=== PATIENT | female | born 1940 | race Caucasian/White ===

== ENCOUNTER 2017-08-15 10:13 | Outpatient (CLI) | payer MEDICARE, BC ==
--- NOTE | 2017-08-15 12:53 | MMO ---
BILATERAL MAMMOGRAMS: History: Screening mammography. Comparison: Multiple exams dating back 06-03-09. FINDINGS: Heterogeneously dense fibroglandular tissue and benign appearing calcifications are again demonstrate d. No dominant mass or suspicious calcifications. This study is interpreted with the assistance of co duyenuter aided detection. IMPRESSION: BIRADS category 1 - negative. Suggest routine follow up. POS: YUE
== END 2017-08-15 10:14 | disposition home or self-care (01) ==
LOC: SCSMAMMO 10:13
PROVIDERS: ATTEND Family Medicine
DX: Z12.31 Encounter for screening mammogram for malignant neoplasm of breast (principal)
CPT/HCPCS: 77067

== ENCOUNTER 2017-11-22 10:33 | Outpatient (CLI) | payer MEDICARE, BC ==
--- NOTE | 2017-11-22 11:37 | RAD ---
THREE VIEWS LEFT SHOULDER: History: Fall. Pain. Comparison: None. FINDINGS: Glenohumeral joint space is preserved. No fracture or dislocation. Visualized left ribs are unremarka ble. IMPRESSION: No fracture or dislocation. POS: YUE
== END 2017-11-22 10:34 | disposition home or self-care (01) ==
LOC: SCSRAD 10:33
PROVIDERS: ATTEND Nurse Practitioner Family
DX: M25.512 Pain in left shoulder (principal)

== ENCOUNTER 2017-11-29 10:01 | Outpatient (CLI) | payer MEDICARE, BC ==
--- NOTE | 2017-11-29 11:53 | ULT ---
THYROID ULTRASOUND: Indications: Enlarged thyroid. History of thyroidectomy over 15 years ago. FINDINGS: The right lobe of the thyroid is not identified indicating a prior right thyroid lobectomy. The left lobe of the thyroid is present and is relatively homogeneous. There are a few scattered tiny nodules present. A tiny nodule in the superior left lobe measures 0.4 - 0.8 cm. A tiny cystic nodule in the m id left lobe measures 0.1 - 0.3 cm. There are two tiny nodules in the inferior left lobe, each measur ing approximately 0.4 cm. One of these has an associated calcification present. IMPRESSION: 1. Evidence of prior right thyroid lobectomy. 2. Left lobe of the thyroid is upper normal size measuring 3.5 x 1.6 x 1.8 cm. There are tiny nodules in the left lobe as described above. POS: YUE
== END 2017-11-29 10:02 | disposition home or self-care (01) ==
LOC: SCSULT 10:01
PROVIDERS: ATTEND Nurse Practitioner Family
DX: E04.9 Nontoxic goiter, unspecified (principal); E04.2 Nontoxic multinodular goiter; E89.0 Postprocedural hypothyroidism
CPT/HCPCS: 76536

== ENCOUNTER 2018-10-23 11:39 | Outpatient (CLI) | payer MEDICARE, BC ==
--- NOTE | 2018-10-23 11:58 | RAD ---
XR Ankle Lt 3 View STANDARD History: M 25.572 pain in left ankle and joints of the left foot Comparison: None. Findings: Transversely oriented fracture of the medial malleolus, age indeterminant. Mild bimalleolar soft tissue swelling. Moderate dorsal and plantar calcaneal spurs. Impression: 1. Likely chronic nondisplaced transversely oriented fracture of the medial malleolus below the ankle joint. 2. Moderate dorsal and plantar calcaneal spurs.
== END 2018-10-23 11:40 | disposition home or self-care (01) ==
LOC: SCSRAD 11:39
PROVIDERS: ATTEND Nurse Practitioner Family
DX: M25.572 Pain in left ankle and joints of left foot (principal); M77.32 Calcaneal spur, left foot

== ENCOUNTER 2018-11-15 10:08 | Emergency (ER) | payer MEDICARE, BC ==
[2018-11-15] MEDS ORDERED: Acetaminophen 500 MG TAB ONE (10:36)
--- NOTE | 2018-11-15 10:47 | RAD ---
EXAM: 3 views of the right shoulder HISTORY: Shoulder pain after being hit by a cow COMPARISON: None FINDINGS: There is no evidence of acute fracture or dislocation. No degenerative changes are present. No soft tissue swelling is seen. The visualized thorax is unremarkable. IMPRESSION: No evidence of acute osseous abnormality.
== END 2018-11-15 11:24 | disposition home or self-care (01) ==
LOC: SCSER 10:08
DX: S40.011A Contusion of right shoulder, initial encounter (principal); W22.8XXA Striking against or struck by other objects, initial encounter
CPT/HCPCS: 93005

== ENCOUNTER 2018-12-22 13:38 | Inpatient (IN) | payer MEDICARE, BC ==
[2018-12-22 14:12] LABS: #Basophils 0.1 thou/uL (0.0-0.2); #Eosinphils 0.1 thou/uL (0.0-0.7); #Lymphocytes 2.1 thou/uL (1.20-3.40); #Monocytes 0.6 thou/uL (0.11-0.59); #Neutrophils 5.6 thou/uL (1.40-6.50); %Basophils 1.4 % (0.0-1.0); %Lymphocytes 24.4 % (21.0-51.0); %Monocytes 7.3 % (0.0-10.0); Hemoglobin 13.4 g/dL (12.0-16.0); Mean Corpuscular HGB CONC 35.5 g/dL (32.0-36.0); Mean Corpuscular Hemoglobin 32.1 pg (27.0-31.0); Mean Corpuscular Volume 90.6 fL (78.0-98.0); Mean Platelet Volume 7.2 fL (7.4-10.4); Platelet Count 232 thou/uL (130-400); RBC Distribution Width 12.1 % (11.5-14.5); Red Blood Cell (RBC) Count 4.18 mill/uL (4.20-5.40); White Blood Cell (WBC) Count 8.5 thou/uL (4.8-10.8)
[2018-12-22 14:23] LABS: ALT (SGPT) 15 U/L (8-55); AST (SGOT) 24 U/L (5-34); Albumin 3.9 g/dL (3.4-4.8); Alkaline Phosphatase 53 U/L (40-150); Anion Gap 15 mmol/L (10-20); BUN (Urea Nitrogen) 22 mg/dL (9.8-20.1); Bilirubin, Total 0.5 mg/dL (0.2-1.2); CK (CPK) 407 U/L (29-168); Calc. Creatinine Clearance 0 mL/min (70-130); Calcium 9.1 mg/dL (7.8-10.44); Carbon Dioxide 23 mmol/L (23-31); Chloride 95 mmol/L (98-107); Estimated GFR-MDRD 49; Globulin 2.9 g/dL (2.4-3.5); Glucose 114 mg/dL (83-110); Potassium 4.4 mmol/L (3.5-5.1); Protein, Total 6.8 g/dL (6.0-8.3); Sodium 129 mmol/L (136-145)
--- NOTE | 2018-12-22 14:23 | CT ---
EXAM: Brain CT scan Without contrast: HISTORY: Altered mental status COMPARISON: None FINDINGS: Atrophy and chronic white matter ischemic change. No focal mass or midline shift. No intra or extra-axial hemorrhage. Right sphenoid mucous and unremarkable mastoids bilaterally. IMPRESSION: No mass or bleed or other significant acute intracranial process.
--- NOTE | 2018-12-22 14:27 | RAD ---
Exam: Chest one view: HISTORY: Altered mental status, follow-up right shoulder injury COMPARISON: 11/15/2018 There is evidence for a fracture involving the right humeral head and extending in the neck, age inde terminant. Heart size is normal. The lungs are clear. No pleural effusion. IMPRESSION: Age-indeterminate right humeral head fracture. No acute intrathoracic disease. Atherosclerosis of the aorta.
[2018-12-22 14:41] LABS: CKMB 3.4 ng/mL (0-6.6)
[2018-12-22 14:52] LABS: Bilirubin Negative (Negative); Blood, Urine Negative (Negative); Clarity Clear (Clear); Glucose, Urine (Dipstick) Negative (Negative); Leukocyte Trace (Negative); Nitrite Negative (Negative); Protein, Urine (Dipstick) Negative (Neg-Trace); Urobilinogen 0.2 mg/dL (Less than 2)
[2018-12-22 14:59] LABS: Bacteria/HPF Rare-Few HPF (None Seen); RBC/HPF 0-3 HPF (0-3)
[2018-12-22] MEDS ORDERED: Aspirin Chewable 81 MG TAB ONE (15:29)
[2018-12-22 17:10] LABS: Troponin I 0.034 ng/mL (< 0.028)
[2018-12-22] MEDS ORDERED: Ondansetron PF 4 MG/2 ML Vial IVP PRN (18:40)
[2018-12-22] MEDS ORDERED: Acetaminophen 325 MG TAB PO PRN (18:40)
[2018-12-22] MEDS ORDERED: Ondansetron ODT 4 MG TAB SL PRN (18:40)
[2018-12-22] MEDS ORDERED: D5 1/2 NS w/20 mEq KCL 1,000 ML IV SCH (18:45)
[2018-12-22 19:38] VITALS: BMI 27.5
[2018-12-22] MEDS ORDERED: Calcium Carbonate 500 MG ChewTAB PO PRN (20:03)
[2018-12-22] MEDS ORDERED: HYDROcodone/Acetaminophen 5/325 mg Tablet PO PRN (20:03)
[2018-12-22] MEDS ORDERED: Docusate 100 MG CAP PO PRN (20:07)
[2018-12-22] MEDS ORDERED: diphenhydrAMINE 25 MG CAP PO PRN (20:07)
[2018-12-22 20:25] LABS: Troponin I 0.012 ng/mL (< 0.028)
[2018-12-22] MEDS: cefTRIAXone\\ROCEPHIN 2 GM in Sodium Chloride 0.9% 100 ML IVPB SCH (20:31)
[2018-12-22] MEDS: Famotidine 20 MG TAB PO SCH (20:31)
[2018-12-22 20:46] LABS: #Basophils 0.1 thou/uL (0.0-0.2); #Eosinphils 0.1 thou/uL (0.0-0.7); #Lymphocytes 1.6 thou/uL (1.20-3.40); #Monocytes 0.5 thou/uL (0.11-0.59); #Neutrophils 3.5 thou/uL (1.40-6.50); %Eosinophils 1.5 % (0.0-10.0); %Lymphocytes 28.1 % (21.0-51.0); %Neutrophils 60.4 % (42.0-75.0); Hemoglobin 12.2 g/dL (12.0-16.0); Mean Corpuscular HGB CONC 34.5 g/dL (32.0-36.0); Mean Corpuscular Hemoglobin 32.2 pg (27.0-31.0); Mean Corpuscular Volume 93.2 fL (78.0-98.0); Mean Platelet Volume 7.4 fL (7.4-10.4); Platelet Count 215 thou/uL (130-400); RBC Distribution Width 12.1 % (11.5-14.5); Red Blood Cell (RBC) Count 3.79 mill/uL (4.20-5.40); White Blood Cell (WBC) Count 5.9 thou/uL (4.8-10.8)
[2018-12-22 21:03] LABS: Anion Gap 11 mmol/L (10-20); BUN (Urea Nitrogen) 17 mg/dL (9.8-20.1); Calc. Creatinine Clearance 59 mL/min (70-130); Calcium 8.5 mg/dL (7.8-10.44); Carbon Dioxide 23 mmol/L (23-31); Chloride 97 mmol/L (98-107); Estimated GFR-MDRD 57; Glucose 122 mg/dL (83-110); Potassium 3.4 mmol/L (3.5-5.1); Sodium 128 mmol/L (136-145)
--- NOTE | 2018-12-23 02:24 | HP ---
CHIEF COMPLAINT: Altered mental status. HISTORY OF PRESENT ILLNESS: Ms. Durbin is a very pleasant 78-year-old white female with past medical history of depression, recurrent urinary tract infection, hypothyroidism, and osteoarthritis. Patient has been going through severe life stressors over the past several weeks and has had several close family deaths and she even found one neighbor who has passed. Patient has been under severe stress and depression from these episodes and has seen her primary care physician in the outpatient setting. Patient was started on Zoloft several weeks ago and has not been having a good response to it. Patient has been having worsening fatigue, low energy levels, low drive to get out of bed. Patient is not eating much. Patient's daughter at bedside does tell me that she does drink a lot of water everyday. She is constantly drinking water. Patient's symptoms have been progressively worsening, so they contacted the primary care physician, who recommended to stop the Zoloft medication and the patient was sent a new prescription for Lexapro, however, the patient has not filled this medication. The patient's daughter was concerned with worsening symptoms and brought her in to acute [facility] for further evaluation. I find the patient on the medical unit with telemetry. She is sitting upright and has finished her dinner and resting in no apparent distress. The patient is talking in full sentences. Patient knows her name, knows her date, knows she is at [facility] in [place], [place], she knows the year, and she has fair insight into her clinical condition. Patient's daughter at bedside tells me that normally she is very talkative and engaged in conversation, however, she has been more withdrawn lately and her daughter is worried about dementia. Patient was found to have mild urinary tract infection in addition to low sodium. Severe life stressors, likely worsening acute depression episode. Patient admitted to medical unit with telemetry for further evaluation and treatment. PAST MEDICAL HISTORY: 1. Depression. 2. Hypothyroidism. 3. Osteoarthritis. 4. Recurrent urinary tract infection, who follows up with Urology in the clinic. 5. Osteoarthritis. HOME MEDICATIONS: 1. Levothyroxine 50 mcg one tab p.o. daily. 2. Zoloft 50 mg one tab p.o. daily. SOCIAL HISTORY: The patient is a nonsmoker, nondrinker with no illicit drug use. REVIEW OF SYSTEMS: A 10-point review of systems was conducted and negative aside from what is mentioned in the history of present illness. ALLERGIES: SULFA. PAST SURGICAL HISTORY: Denies. PHYSICAL EXAMINATION: VITAL SIGNS: Temperature 97.4, pulse 67, respirations 18, O2 saturation 94% on room air, and blood pressure 141/82. HEENT: Head is normocephalic and atraumatic. Pupils are equally round and reactive to light and accommodation. Extraocular muscles are intact. There are no appreciated exudates or erythema on the tonsils. NECK: Supple and symmetrical. LUNGS: Lungs are clear to auscultation bilaterally without wheezing, rales, or rhonchi. CARDIAC: S1 and S2 present. No appreciated murmurs, rubs, or gallops. ABDOMEN: Abdomen is soft, nontender, and nondistended without focal guarding or rigidity. EXTREMITIES: There is 1+ edema bilaterally in the lower extremities. Upper and lower extremities are symmetrical without gross deformity. The right arm is in a sling with recent broken humerus from a fall. There is mild tenderness to palpation on the right humerus. Patient does have good range of motion for this arm. SKIN: No significant rashes or lesions appreciated. PSYCHIATRIC: Patient is alert and oriented x3 with fair insight to her clinical condition. LABORATORY DATA: WBC 8.5, RBC 4.18, hemoglobin 13.4, hematocrit 37.8, and platelets 232. Sodium 129, potassium 4.4, chloride 95, carbon dioxide 23, anion gap 15, BUN 22, creatinine 1.07, estimated GFR 49, glucose 114, lactic acid 1.5, calcium 9.1, total bilirubin 0.5, AST 24, ALT 15, and alkaline phosphatase 53. Creatine kinase 407. Troponin 0.034. Albumin 3.9. Urinalysis was performed and was abnormal for trace leukocyte esterase with few bacteria. ASSESSMENT/PLAN: 1. Altered mental status. Patient's altered mental status is multifactorial including hyponatremia, worsening depression, and urinary tract infection. Although the patient's daughter is concerned for dementia, there are several other organic medical diseases that would explain her symptoms and the acute onset of her symptoms also point to dementia. We will correct the patient's sodium and see if patient's mental status improves. Stop patient's current antidepressant as this may be too potent for her and has been causing worsening lethargy. Concerning patient's urinary tract infection, we will start IV antibiotics and deescalate to culture and sensitivity as able. 2. Hyponatremia. Patient has had episodes of hyponatremia in the past and has had episodes of confusion with this. IV fluid resuscitation has been discontinued and the patient appears to be euvolemic. We will recommend that the patient have fluid restrictions. With the patient being on SSRI medications, the possibility of SIADH is also considered. If hyponatremia cannot be controlled, I will consult Nephrology for further recommendations. 3. Acute urinary tract infection. Patient has frequent recurrent urinary tract infections and follows up with Urology frequently. We will start broad-spectrum antibiotics and deescalate to culture and sensitivity as able. 4. Fall several weeks ago, resulting in right humeral fracture. Patient has outpatient followup with Orthopedic Surgery. 5. Depression. Patient has had many severe life stressors including close family deaths and finding someone close to her who has passed. Patient may benefit from a mild antidepressant such as mirtazapine that is recommended by geriatricians, a low dose at night may aid in sleep as well. With patient having numerous adverse side effects from her Zoloft and being changed to Lexapro and washout period of a few days is recommended. 6. Hypothyroidism. 7. Osteoarthritis. 8. Elevated BMI. Job ID: [id number]
[2018-12-23] MEDS: hydrALAZINE 20 MG/ML VIAL SLOW IVP PRN (03:47)
[2018-12-23] MEDS ORDERED: Levothyroxine Sodium 50 MCG TAB PO SCH (06:00)
[2018-12-23] MEDS ORDERED: cloNIDine 0.1 MG TAB PO SCH (06:15)
[2018-12-23] MEDS ORDERED: Prevnar 13-Val Conj/PF 0.5 ML SYRINGE IM ONE (09:00)
[2018-12-23] MEDS: Enoxaparin Sodium 40 MG/0.4 ML SYRINGE SC SCH (09:20)
[2018-12-23] MEDS: Lisinopril 10 MG TAB PO SCH (09:20)
[2018-12-23] MEDS: Famotidine 20 MG TAB PO SCH ×2 (09:20→20:30)
[2018-12-23] MEDS: Sodium Chloride 0.9% 1,000 ML IV SCH (09:21)
[2018-12-23] MEDS: Amlodipine 5 MG TAB PO SCH (09:21)
--- NOTE | 2018-12-23 12:03 | PDOC.HOSPP ---
- Subjective Subjective: Seen and examined. Slept well. Alert and oriented x3 with fair insight into clinical condition. Educated on cutting back on her free water intake. Denies pain. Breathing well. No new complaints. - Objective Vital Signs & Weight: Vital Signs (12 hours) Temp Pulse Resp BP BP Pulse Ox 12/23/18 08:25 98.0 F 71 18 151/66 H 98 12/23/18 06:34 184/70 H 12/23/18 05:44 184/70 H 12/23/18 04:00 98.3 F 78 17 159/78 H 97 12/23/18 03:47 67 215/96 H Weight Weight 175 lb 9.6 oz I&O: 12/22/18 12/23/18 12/24/18 06:59 06:59 06:59 Intake Total 940 Output Total 1000 Balance -60 Result Diagrams: 12/22/18 20:39 12/22/18 20:39 Radiology Reviewed by me: Yes (Chest x-ray) Hospitalist ROS - Medication Medications: Active Medications Generic Name Dose Route Start Last Admin Trade Name Freq PRN Reason Stop Dose Admin Amlodipine Besylate 5 mg 12/23/18 09:00 12/23/18 09:21 Norvasc PO 5 mg DAILY BUBBA Administration Enoxaparin Sodium 40 mg 12/23/18 09:00 12/23/18 09:20 Lovenox SC 40 mg 0900 BUBBA Administration Famotidine 20 mg 12/22/18 21:00 12/23/18 09:20 Pepcid PO 20 mg BID BUBBA Administration Hydralazine HCl 10 mg 12/22/18 20:07 12/23/18 03:47 Apresoline SLOW IVP 10 mg Q4H PRN Administration Hypertension Ceftriaxone Sodium 2 gm/ 100 mls @ 200 mls/hr 12/22/18 21:00 12/22/18 20:31 Sodium Chloride IVPB 12/29/18 21:01 100 mls Q24HR BUBBA Administration Sodium Chloride 1,000 mls @ 50 mls/hr 12/23/18 07:45 12/23/18 09:21 Normal Saline 0.9% IV 1,000 mls .Q20H BUBBA Administration Levothyroxine Sodium 50 mcg 12/23/18 06:00 12/23/18 05:44 Synthroid PO 50 mcg 0600 BUBBA Administration Lisinopril 10 mg 12/23/18 09:00 12/23/18 09:20 Zestril PO 10 mg DAILY BUBBA Administration - Exam General Appearance: NAD, awake alert Eye: PERRL, anicteric sclera Eye - other findings: EOMI ENT: no oropharyngeal lesions, moist mucosa Neck: supple, symmetric Heart: no murmur, no gallops, no rubs Heart - other findings: S1 and S2 present Respiratory: CTAB, no wheezes, no rales, no ronchi Gastrointestinal: soft, non-tender, non-distended, no guarding, no rigidity Extremities: no edema Skin: no lesions, no rashes Neurological: CN's grossly intact, normal sensation to touch, no weakness Musculoskeletal: no muscle wasting, generalized weakness Psychiatric: normal affect, A&O x 3 Hosp A/P (1) Hyponatremia Code(s): E87.1 - HYPO-OSMOLALITY AND HYPONATREMIA Status: Acute (2) Altered mental status Code(s): R41.82 - ALTERED MENTAL STATUS, UNSPECIFIED Status: Resolved (3) UTI (urinary tract infection) Status: Acute (4) Hypothyroid Code(s): E03.9 - HYPOTHYROIDISM, UNSPECIFIED Status: Chronic (5) Depression Code(s): F32.9 - MAJOR DEPRESSIVE DISORDER, SINGLE EPISODE, UNSPECIFIED Status : Acute - Plan Plan: Med/ tel Hyponatremia worse, patient was transferred on D5 1/2NS which will lower sodium Restrict free water intake NS at 50mL/hr for slow correction of sodium AMS has resolved CT brain neg Hold SSRI with concern for SIADH Has had increasing lethargy since started on SSRI a few weeks ago Severe life stressors worsening acute depression Start Amlodipine for better BP control Continue Lisionopril Continue home meds as able GI and DVT PPX
[2018-12-23] MEDS: cefTRIAXone\\ROCEPHIN 2 GM in Sodium Chloride 0.9% 100 ML IVPB SCH (20:30)
[2018-12-24] MEDS: hydrALAZINE 20 MG/ML VIAL SLOW IVP PRN (04:56)
[2018-12-24] MEDS: Levothyroxine Sodium 100 MCG TAB PO SCH (04:56)
[2018-12-24] MEDS: Sodium Chloride 0.9% 1,000 ML IV SCH (05:46)
[2018-12-24 07:14] LABS: #Eosinphils 0.2 thou/uL (0.0-0.7); #Lymphocytes 1.3 thou/uL (1.20-3.40); #Monocytes 0.4 thou/uL (0.11-0.59); #Neutrophils 3.8 thou/uL (1.40-6.50); %Basophils 0.6 % (0.0-1.0); %Eosinophils 3.2 % (0.0-10.0); %Lymphocytes 23.3 % (21.0-51.0); %Monocytes 7.2 % (0.0-10.0); %Neutrophils 65.8 % (42.0-75.0); Hemoglobin 12.6 g/dL (12.0-16.0); Mean Corpuscular HGB CONC 34.2 g/dL (32.0-36.0); Mean Corpuscular Volume 93.4 fL (78.0-98.0); Mean Platelet Volume 7.6 fL (7.4-10.4); Platelet Count 205 thou/uL (130-400); RBC Distribution Width 12.2 % (11.5-14.5); Red Blood Cell (RBC) Count 3.95 mill/uL (4.20-5.40); White Blood Cell (WBC) Count 5.7 thou/uL (4.8-10.8)
[2018-12-24 07:38] LABS: Anion Gap 10 mmol/L (10-20); BUN (Urea Nitrogen) 14 mg/dL (9.8-20.1); Calc. Creatinine Clearance 62 mL/min (70-130); Calcium 8.5 mg/dL (7.8-10.44); Carbon Dioxide 24 mmol/L (23-31); Chloride 99 mmol/L (98-107); Estimated GFR-MDRD 59; Glucose 102 mg/dL (83-110); Potassium 3.8 mmol/L (3.5-5.1); Sodium 129 mmol/L (136-145)
[2018-12-24] MEDS: Amlodipine 5 MG TAB PO SCH (08:05)
[2018-12-24] MEDS: Lisinopril 10 MG TAB PO SCH (08:05)
[2018-12-24] MEDS: Famotidine 20 MG TAB PO SCH ×2 (08:05→20:30)
[2018-12-24] MEDS: Enoxaparin Sodium 40 MG/0.4 ML SYRINGE SC SCH (08:06)
--- NOTE | 2018-12-24 11:39 | PDOC.HOSPP ---
- Subjective Subjective: Seen and examined. Denies pain. Breathing well. Wants to go home. A&Ox3 with fair insight into clinical condition. Continues to drink a lot of water. Not much improvement in sodium. - Objective Vital Signs & Weight: Vital Signs (12 hours) Temp Pulse Pulse Pulse Resp BP BP 12/24/18 11:17 99 F 80 18 12/24/18 09:48 12/24/18 08:55 89 95 140/64 12/24/18 07:09 98.9 F 82 18 12/24/18 04:56 77 188/71 H 12/24/18 04:30 97.9 F 77 16 BP BP Pulse Ox 12/24/18 11:17 148/66 H 95 12/24/18 09:48 138/70 12/24/18 08:55 151/67 H 12/24/18 07:09 177/76 H 99 12/24/18 04:56 12/24/18 04:30 188/77 H 97 Weight Weight 178 lb 4.8 oz I&O: 12/23/18 12/24/18 12/25/18 06:59 06:59 06:59 Intake Total 940 2370 Output Total 1000 1075 Balance -60 1295 Result Diagrams: 12/24/18 06:58 12/24/18 06:58 Hospitalist ROS - Medication Medications: Active Medications Generic Name Dose Route Start Last Admin Trade Name Freq PRN Reason Stop Dose Admin Amlodipine Besylate 5 mg 12/23/18 09:00 12/24/18 08:05 Norvasc PO 5 mg DAILY BUBBA Administration Enoxaparin Sodium 40 mg 12/23/18 09:00 12/24/18 08:06 Lovenox SC 40 mg 09 BUBBA Administration Famotidine 20 mg 12/22/18 21:00 12/24/18 08:05 Pepcid PO 20 mg BID BUBBA Administration Hydralazine HCl 10 mg 12/22/18 20:07 12/24/18 04:56 Apresoline SLOW IVP 10 mg Q4H PRN Administration Hypertension Ceftriaxone Sodium 2 gm/ 100 mls @ 200 mls/hr 12/22/18 21:00 12/23/18 20:30 Sodium Chloride IVPB 12/29/18 21:01 100 mls Q24HR BUBBA Administration Levothyroxine Sodium 100 mcg 12/24/18 06:00 09/02/19 04:56 Synthroid PO 100 mcg 0600 BUBBA Administration Lisinopril 10 mg 12/23/18 09:00 12/24/18 08:05 Zestril PO 10 mg DAILY BUBBA Administration - Exam General Appearance: NAD, awake alert Eye: PERRL, anicteric sclera Eye - other findings: EOMI ENT: no oropharyngeal lesions, moist mucosa Neck: supple Heart: RRR, no murmur, no gallops, no rubs Respiratory: CTAB, no wheezes, no rales, no ronchi Gastrointestinal: soft, non-tender, non-distended, no guarding, no rigidity Extremities: no clubbing, 1+ LE edema Skin: no lesions, no rashes Neurological: CN's grossly intact, no weakness, no focal deficits, no new deficit Musculoskeletal: generalized weakness Psychiatric: normal affect, A&O x 3 Hosp A/P (1) Hyponatremia Code(s): E87.1 - HYPO-OSMOLALITY AND HYPONATREMIA Status: Acute (2) Altered mental status Code(s): R41.82 - ALTERED MENTAL STATUS, UNSPECIFIED Status: Resolved (3) UTI (urinary tract infection) Status: Acute (4) Hypothyroid Code(s): E03.9 - HYPOTHYROIDISM, UNSPECIFIED Status: Chronic (5) Depression Code(s): F32.9 - MAJOR DEPRESSIVE DISORDER, SINGLE EPISODE, UNSPECIFIED Status : Acute - Plan Plan: Med/ tel Hyponatremia not much improvement, patient continues to drink a lot of water Restrict free water intake Stop NS at 50mL/hr for slow correction of sodium, to avoid volume overload AMS has resolved CT brain neg Hold SSRI with concern for SIADH Has had increasing lethargy since started on SSRI a few weeks ago Severe life stressors worsening acute depression Better BP control after starting Amlodipine, may need uptitrated over the following days/ weeks Continue Amlodipine 5mg daily Continue Lisionopril 10mg daily UTI on ABX, will adjust to culture and sensitivity when able Preliminary blood culture positive 1/2 may be contaminant Continue home meds as able GI and DVT PPX
[2018-12-24] MEDS: cefTRIAXone\\ROCEPHIN 2 GM in Sodium Chloride 0.9% 100 ML IVPB SCH (20:30)
[2018-12-25 04:47] LABS: Creatinine, Urine 24.17 mg/dL (47-110)
[2018-12-25 05:11] LABS: #Eosinphils 0.2 thou/uL (0.0-0.7); #Lymphocytes 1.4 thou/uL (1.20-3.40); #Monocytes 0.5 thou/uL (0.11-0.59); #Neutrophils 3.1 thou/uL (1.40-6.50); %Basophils 0.5 % (0.0-1.0); %Eosinophils 3.7 % (0.0-10.0); %Lymphocytes 26.2 % (21.0-51.0); %Monocytes 9.4 % (0.0-10.0); %Neutrophils 60.2 % (42.0-75.0); Hemoglobin 12.1 g/dL (12.0-16.0); Mean Corpuscular HGB CONC 34.7 g/dL (32.0-36.0); Mean Corpuscular Hemoglobin 32.1 pg (27.0-31.0); Mean Corpuscular Volume 92.8 fL (78.0-98.0); Mean Platelet Volume 7.7 fL (7.4-10.4); Platelet Count 193 thou/uL (130-400); RBC Distribution Width 12.1 % (11.5-14.5); Red Blood Cell (RBC) Count 3.77 mill/uL (4.20-5.40); White Blood Cell (WBC) Count 5.2 thou/uL (4.8-10.8)
[2018-12-25 05:25] LABS: Anion Gap 11 mmol/L (10-20); BUN (Urea Nitrogen) 13 mg/dL (9.8-20.1); Calc. Creatinine Clearance 67 mL/min (70-130); Calcium 8.7 mg/dL (7.8-10.44); Carbon Dioxide 24 mmol/L (23-31); Chloride 99 mmol/L (98-107); Estimated GFR-MDRD 63; Glucose 105 mg/dL (83-110); Potassium 3.9 mmol/L (3.5-5.1); Sodium 130 mmol/L (136-145)
[2018-12-25] MEDS: Levothyroxine Sodium 100 MCG TAB PO SCH (05:46)
[2018-12-25] MEDS: hydrALAZINE 20 MG/ML VIAL SLOW IVP PRN (05:50)
[2018-12-25] MEDS: Lisinopril 10 MG TAB PO SCH (08:22)
[2018-12-25] MEDS: Famotidine 20 MG TAB PO SCH ×2 (08:22→20:14)
[2018-12-25] MEDS: Enoxaparin Sodium 40 MG/0.4 ML SYRINGE SC SCH (08:22)
[2018-12-25] MEDS: Amlodipine 5 MG TAB PO SCH (08:23)
--- NOTE | 2018-12-25 09:59 | CON ---
DATE OF CONSULTATION: SERVICE: Renal Medicine. HISTORY OF PRESENT ILLNESS: Ms. Durbin is an 78-year-old white female, who was initially admitted for confusion. The patient's mentation over the last few days has improved on its own. The feeling is that the confusion may be related to a drug-induced etiology. During this hospitalization, she was noted to be hyponatremic. I have placed this patient on free water restriction and in the last 12 hours, serum sodium slightly improved. We are further following up this patient for evaluation of the etiology of the hypothyroidism. Of interest, this patient has had increased free water intake and this may be contributing to her hyponatremia. REVIEW OF SYSTEMS: No chest pain. Occasional confusion. No nausea. No vomiting. No diarrhea. No constipation. No productive cough. No fever or chills. No syncopal episode. No dysuria. No urinary frequency. No melena. No hematochezia. No hematemesis. Appetite and energy level are fair. No headache. MEDICATIONS: Currently on; 1. Amlodipine 5 mg tablet once a day. 2. Calcium carbonate 1000 mg q.4 p.r.n. 3. Ceftriaxone 2 g daily. 4. Benadryl 25 mg q.6 p.r.n. 5. Docusate 100 mg p.o. b.i.d. 6. Lovenox 40 mg subcu daily. 7. Famotidine 20 mg p.o. b.i.d. 8. Hydrocodone p.r.n. 9. DuoNeb q.4. 10. Levothyroxine 100 mcg daily. 11. Lisinopril 10 mg daily. PAST MEDICAL HISTORY: Shows the following; 1. Hypothyroidism. 2. DJD. 3. Depression. 4. Status post UTI. PAST SURGICAL HISTORY: Status post bilateral knee replacement, status post back surgery, status post hysterectomy, and status post thyroidectomy. SOCIAL HISTORY: The patient is . Lives in [place]. Two children. She is a retired e commerce director. Education, high school. No smoking. Takes one beer per day. No IV drug abuse. Denies any blood transfusion. ALLERGIES: SULFA. TRAUMA: None. IMMUNIZATIONS: Not up-to-date - declining flu shot. FAMILY HISTORY: No family history of ESRD. PHYSICAL EXAMINATION: VITAL SIGNS: Blood pressure is noted at 185/75, heart rate 71, respiratory rate 16, temperature 98.5, and pulse ox 96%. GENERAL: Noted to be awake, alert, comfortable, not in distress. Oriented to 3 spheres. SKIN: Adequate turgor. HEENT: Pinkish conjunctivae. Anicteric sclerae. NECK: No neck mass. No carotid bruits. No JVD. CHEST: No deformities. LUNGS: Clear breath sounds. HEART: Normal sinus rhythm. No murmur. No gallops. No rubs. ABDOMEN: Globular, soft, and nontender. No masses. EXTREMITIES: No edema. No deformities. NEUROLOGICAL: Oriented to 3 spheres. Moving all extremities. No tremors. No asterixis. No ataxia. LABORATORY DATA: Laboratories of December 25, 2018; sodium 130, potassium 3.9, chloride 99, carbon dioxide 24, BUN 13, creatinine 0.86, glucose 105, and calcium is 8.7. Cortisol level on December 24, 2018 of 8.2. TSH 1.834. Uric acid is 3.5. Urine sodium is 97. Urine creatinine 24.17. Urine osmolality is 299. Serum osmolality is 275. IMAGING DATA: On December 22, 2018, chest x-ray shows no evidence of CHF. CT scan of the brain on December 22, 2018, no acute intracranial process. ASSESSMENT AND PLAN: Acute hyponatremia - this may be just a reflection of increased free water intake by the patient. She has a history of taking several liters of free water in a short period. I have placed her on a free water restriction and there is a slight improvement of the hyponatremia. For the moment, continue free water restriction of 1 L per day. There is no indication for starting this patient on any hypertonic saline. In addition, I reviewed her medication. She is not currently taking any medication, which might cause the hyponatremia. For the moment, supportive care. Her mentation is doing well. We will recheck base metabolic panel again in a.m. Overall, agree with current management. Job ID: [id number]
[2018-12-25] MEDS ORDERED: Amlodipine 5 MG TAB PO SCH (11:15)
--- NOTE | 2018-12-25 12:34 | PDOC.HOSPP ---
- Subjective Subjective: Seen and examined. Patient slept well. In good spirits. Patient with fluid restrictions in place has 3 open drinks in front of her. BP still not controlled. Mentation improved. Patient wants to go home. - Objective Vital Signs & Weight: Vital Signs (12 hours) Temp Pulse Resp BP BP Pulse Ox 12/25/18 11:15 97.7 F 82 18 127/58 L 99 12/25/18 07:40 97.8 F 88 16 199/81 H 96 12/25/18 05:50 71 198/92 H 12/25/18 04:00 98.5 F 71 16 185/75 H 96 Weight Weight 177 lb 4.8 oz I&O: 12/24/18 12/25/18 12/26/18 06:59 06:59 06:59 Intake Total 2370 1810 Output Total 1075 2200 Balance 1295 -390 Result Diagrams: 12/25/18 04:49 12/25/18 04:49 Hospitalist ROS - Review of Systems All other systems reviewed; all pertinent +/- noted in HPI/Subj - Medication Medications: Active Medications Generic Name Dose Route Start Last Admin Trade Name Freq PRN Reason Stop Dose Admin Amlodipine Besylate 5 mg 12/25/18 11:15 12/25/18 12:00 Norvasc PO 12/25/18 13:15 5 mg NOW BUBBA Administration Enoxaparin Sodium 40 mg 12/23/18 09:00 12/25/18 08:22 Lovenox SC 40 mg 0900 BUBBA Administration Famotidine 20 mg 12/22/18 21:00 12/25/18 08:22 Pepcid PO 20 mg BID BUBBA Administration Hydralazine HCl 10 mg 12/22/18 20:07 12/25/18 05:50 Apresoline SLOW IVP 10 mg Q4H PRN Administration Hypertension Ceftriaxone Sodium 2 gm/ 100 mls @ 200 mls/hr 12/22/18 21:00 12/24/18 20:30 Sodium Chloride IVPB 12/29/18 21:01 100 mls Q24HR BUBBA Administration Levothyroxine Sodium 100 mcg 12/24/18 06:00 12/25/18 05:46 Synthroid PO 100 mcg 0600 BUBBA Administration Lisinopril 10 mg 12/23/18 09:00 12/25/18 08:22 Zestril PO 10 mg DAILY BUBBA Administration - Exam General Appearance: NAD, awake alert Eye: PERRL Eye - other findings: EOMI ENT: no oropharyngeal lesions, moist mucosa Neck: supple, symmetric, no JVD Heart: RRR, no murmur, no gallops, no rubs Respiratory: CTAB, no wheezes, no rales, normal chest expansion Gastrointestinal: soft, non-tender, normal bowel sounds, no guarding, no rigidity Extremities: 1+ LE edema Skin: no lesions, no rashes Neurological: CN's grossly intact, no focal deficits Musculoskeletal: generalized weakness Psychiatric: normal affect, A&O x 3 Hosp A/P (1) Hyponatremia Code(s): E87.1 - HYPO-OSMOLALITY AND HYPONATREMIA Status: Acute (2) Altered mental status Code(s): R41.82 - ALTERED MENTAL STATUS, UNSPECIFIED Status: Resolved (3) UTI (urinary tract infection) Status: Acute (4) Hypothyroid Code(s): E03.9 - HYPOTHYROIDISM, UNSPECIFIED Status: Chronic (5) Depression Code(s): F32.9 - MAJOR DEPRESSIVE DISORDER, SINGLE EPISODE, UNSPECIFIED Status : Acute - Plan Plan: Med/ tel Nephrology consult, recommendations appreciated Hyponatremia not much improvement, patient continues to drink a lot of water/ fluids Further restrict free water intake 1000cc total all fluids per day Stop NS at 50mL/hr for slow correction of sodium, to avoid volume overload AMS has resolved CT brain neg Hold SSRI with concern for SIADH Has had increasing lethargy since started on SSRI a few weeks ago Severe life stressors worsening acute depression Better BP control after starting Amlodipine, may need uptitrated over the following days/ weeks Increased Amlodipine 10mg daily Continue Lisionopril 10mg daily UTI on ABX, will adjust to culture and sensitivity when able Preliminary blood culture positive 1/2 may be contaminant Continue home meds as able GI and DVT PPX
--- NOTE | 2018-12-25 12:52 | PQF ---
DATE: 12-25-18 ATTN: DR. XAVIER CORBIN Please exercise your independent, professional judgment in responding to the clarification form. Clinical indicators are provided on the bottom of this form for your review Please check appropriate box(s): Mood Disorder Type (check appropriate): [ XX ] Major Depressive Disorder Status: Severity: [ ] Single past episode [ ] Mild [ ] Current episode [ ] Moderate [ ] In remission [ ] Severe [ ] Persistent Mood Disorder [ ] Other diagnosis [ ] Unable to determine In addition, please specify: Present on Admission (POA): [ ] Yes [ ] No [ ] Unable to determine For continuity of documentation, please document condition throughout progress notes and discharge summary. Thank You. CLINICAL INDICATORS - SIGNS / SYMPTOMS / LABS: H&P 12-22-18: PATIENT HAS BEEN UNDER SEVERE STRESS AND DEPRESSION FROM THESE EPISODES. RISK FACTORS: H&P 12-22-18: HX DEPRESSION, HAS BEEN GOING THROUGH SEVERE LIKE STRESSORS OVER THE PAST SEVERAL WEEKS AND HAS HAD SEVERAL CLOSE FAMILY DEATHS AND SHE EVEN FOUND ONE NEIGHBOR WHO HAS PASSED. TREATMENT: H&P: PT MAY BENEFIT FROM A MILD ANTIDEPRESSANT SUCH MIRTAZAPINE LORENA IS RECOMMENDED BY GERIATRICIANS (This form is maintained as a part of the permanent medical record) 2014 [employer] All Rights Reserved [email or web address] Office: [phone] LIEN
--- NOTE | 2018-12-25 16:34 | PDOC.EVN ---
Event Note - Event Note Event Note: Discussed case with daughter Angélica at . All questions answered in detail. Patient and family happy with plan of care. Will peruse placement for a short course in sub acute facility when medically stable.
[2018-12-25] MEDS: cefTRIAXone\\ROCEPHIN 2 GM in Sodium Chloride 0.9% 100 ML IVPB SCH (20:14)
[2018-12-25] MEDS ORDERED: Lisinopril 10 MG TAB PO SCH (21:00)
[2018-12-26] MEDS: Levothyroxine Sodium 100 MCG TAB PO SCH (04:50)
[2018-12-26 05:33] LABS: #Eosinphils 0.2 thou/uL (0.0-0.7); #Lymphocytes 1.7 thou/uL (1.20-3.40); #Monocytes 0.6 thou/uL (0.11-0.59); #Neutrophils 4.1 thou/uL (1.40-6.50); %Basophils 0.5 % (0.0-1.0); %Eosinophils 2.7 % (0.0-10.0); %Lymphocytes 25.6 % (21.0-51.0); %Monocytes 9.2 % (0.0-10.0); %Neutrophils 61.9 % (42.0-75.0); Hemoglobin 11.6 g/dL (12.0-16.0); Mean Corpuscular HGB CONC 35.4 g/dL (32.0-36.0); Mean Corpuscular Hemoglobin 33.1 pg (27.0-31.0); Mean Corpuscular Volume 93.5 fL (78.0-98.0); Mean Platelet Volume 7.9 fL (7.4-10.4); Platelet Count 204 thou/uL (130-400); RBC Distribution Width 12.1 % (11.5-14.5); Red Blood Cell (RBC) Count 3.51 mill/uL (4.20-5.40); White Blood Cell (WBC) Count 6.6 thou/uL (4.8-10.8)
[2018-12-26 05:43] LABS: Anion Gap 11 mmol/L (10-20); BUN (Urea Nitrogen) 18 mg/dL (9.8-20.1); Calc. Creatinine Clearance 61 mL/min (70-130); Calcium 8.3 mg/dL (7.8-10.44); Carbon Dioxide 22 mmol/L (23-31); Chloride 99 mmol/L (98-107); Estimated GFR-MDRD 58; Glucose 103 mg/dL (83-110); Potassium 3.8 mmol/L (3.5-5.1); Sodium 128 mmol/L (136-145)
[2018-12-26] MEDS: Famotidine 20 MG TAB PO SCH ×2 (08:49→21:36)
[2018-12-26] MEDS: Lisinopril 10 MG TAB PO SCH ×2 (08:49→21:35)
[2018-12-26] MEDS: Amlodipine 10 MG TAB PO SCH (08:49)
[2018-12-26] MEDS: Enoxaparin Sodium 40 MG/0.4 ML SYRINGE SC SCH (08:49)
[2018-12-26] MEDS: Sodium Chloride 1 GM TAB PO SCH ×3 (09:02→21:36)
--- NOTE | 2018-12-26 09:59 | PRG ---
DATE OF SERVICE: 12/26/2018 SUBJECTIVE: Ms. Durbin is an 78-year-old white female, who I have seen for her hyponatremia. Workup may suggest she may have SIADH. She is currently on free water restriction. Serum sodium is a little low today from 130 to 128. Our plan is to start her on some sodium chloride tablets. She is mentating well. She denies any chest pain, nausea, vomiting, or diarrhea. OBJECTIVE: VITAL SIGNS: Blood pressure is 151/68, heart rate 76, respiratory rate 16, temperature 98.5, and pulse oximetry 96%. GENERAL: Noted to be awake, alert, comfortable, not in distress. SKIN: Adequate turgor. HEENT: She has pinkish conjunctivae. Anicteric sclerae. NECK: No neck mass. No carotid bruits. No JVD. CHEST: No deformities. LUNGS: Clear breath sounds. No wheezing. No crackles. HEART: Normal sinus rhythm. No murmur. No gallops. No rubs. ABDOMEN: Globular, soft, and nontender. No masses. EXTREMITIES: No edema. No deformities. MEDICATIONS: Medications of December 26, 2018, were reviewed. LABORATORY DATA: Laboratories of December 26, 2018; sodium 128, potassium 3.8, chloride 99, carbon dioxide 22, BUN 18, creatinine 0.93, glucose 103, and calcium 8.3. 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 Continue free water restriction of 1 L per day. We will start sodium chloride 1 g p.o. t.i.d. There is no indication for any hypertonic saline. The patient is mentating well. Continue supportive care. Overall, agree with current management. Recheck basic metabolic profile in a.m. Job ID: [id number]
--- NOTE | 2018-12-26 12:37 | PDOC.HOSPP ---
- Subjective Subjective: Seen and examined. Patient confused on the year this AM. Knows she is in [facility], at [facility], knows herself. Though she does not have a good understanding of clinical condition despite being educated daily. Does not remember to restrict water intake and sodium has worsened from 130 to 128. - Objective Vital Signs & Weight: Vital Signs (12 hours) Temp Pulse Resp BP Pulse Ox 12/26/18 12:25 97.9 F 79 15 135/63 96 12/26/18 08:00 96 12/26/18 07:40 98.5 F 76 16 151/68 H 96 12/26/18 04:00 98.8 F 84 16 139/63 93 L Weight Weight 177 lb 14.4 oz I&O: 12/25/18 12/26/18 12/27/18 06:59 06:59 06:59 Intake Total 1810 1310 Output Total 2200 1575 Balance -390 -265 Result Diagrams: 12/26/18 04:34 12/26/18 04:34 Hospitalist ROS - Review of Systems All other systems reviewed; all pertinent +/- noted in HPI/Subj - Medication Medications: Active Medications Generic Name Dose Route Start Last Admin Trade Name Freq PRN Reason Stop Dose Admin Amlodipine Besylate 10 mg 12/26/18 09:00 12/26/18 08:49 Norvasc PO 10 mg DAILY BUBBA Administration Enoxaparin Sodium 40 mg 12/23/18 09:00 12/26/18 08:49 Lovenox SC 40 mg 0900 BUBBA Administration Famotidine 20 mg 12/22/18 21:00 12/26/18 08:49 Pepcid PO 20 mg BID BUBBA Administration Hydralazine HCl 10 mg 12/22/18 20:07 12/25/18 05:50 Apresoline SLOW IVP 10 mg Q4H PRN Administration Hypertension Ceftriaxone Sodium 2 gm/ 100 mls @ 200 mls/hr 12/22/18 21:00 12/25/18 20:14 Sodium Chloride IVPB 12/29/18 21:01 100 mls Q24HR BUBBA Administration Levothyroxine Sodium 100 mcg 12/24/18 06:00 12/26/18 04:50 Synthroid PO 100 mcg 0600 BUBBA Administration Lisinopril 10 mg 12/26/18 09:00 12/26/18 08:49 Zestril PO 10 mg BID BUBBA Administration Sodium Chloride 10 ml 12/26/18 09:00 12/26/18 08:51 Flush - Normal Saline IVF 10 ml Q12HR BUBBA Administration Sodium Chloride 1 gm 12/26/18 09:00 12/26/18 09:02 Sodium Chloride PO 1 gm TID BUBBA Administration - Exam General Appearance: NAD, awake alert Eye: anicteric sclera Eye - other findings: EOMI ENT: no oropharyngeal lesions, moist mucosa Neck: supple, symmetric, no lymphadenopathy Heart: RRR, no murmur, no gallops, no rubs, normal peripheral pulses Respiratory: CTAB, no wheezes, no rales, no ronchi, normal chest expansion Gastrointestinal: soft, non-tender, non-distended, normal bowel sounds, no guarding, no rigidity Extremities: no cyanosis, 1+ LE edema Skin: normal turgor, no rashes Neurological: CN's grossly intact, no weakness, no focal deficits Musculoskeletal: generalized weakness Psychiatric: normal affect, oriented to person, oriented to place Hosp A/P (1) Hyponatremia Code(s): E87.1 - HYPO-OSMOLALITY AND HYPONATREMIA Status: Acute (2) Altered mental status Code(s): R41.82 - ALTERED MENTAL STATUS, UNSPECIFIED Status: Resolved (3) UTI (urinary tract infection) Status: Acute (4) Hypothyroid Code(s): E03.9 - HYPOTHYROIDISM, UNSPECIFIED Status: Chronic (5) Depression Code(s): F32.9 - MAJOR DEPRESSIVE DISORDER, SINGLE EPISODE, UNSPECIFIED Status : Acute - Plan Plan: Med/ tel Nephrology consult, recommendations appreciated Hyponatremia not much improvement actually worse today decreasing from 130 to 128, patient continues to drink a lot of water/ fluids Strict fluid restrict free water intake 1000cc total all fluids per day Agree with salt tabs Confusion is worse today Better BP control after starting Amlodipine, may need uptitrated over the following days/ weeks Continue Amlodipine 10mg daily Increase to Lisionopril 10mg BID from once daily CT brain neg Hold SSRI with concern for SIADH Has had increasing lethargy since started on SSRI a few weeks ago Severe life stressors worsening acute depression UTI on ABX, will adjust to culture and sensitivity when able Preliminary blood culture positive 1/2 may be contaminant Continue home meds as able GI and DVT PPX
[2018-12-26] MEDS ORDERED: Mirtazapine 15 MG Soltab PO SCH (21:00)
[2018-12-26] MEDS: cefTRIAXone\\ROCEPHIN 2 GM in Sodium Chloride 0.9% 100 ML IVPB SCH (21:35)
[2018-12-27] MEDS: Levothyroxine Sodium 100 MCG TAB PO SCH (05:33)
[2018-12-27 06:25] LABS: #Eosinphils 0.2 thou/uL (0.0-0.7); #Lymphocytes 1.3 thou/uL (1.20-3.40); #Monocytes 0.6 thou/uL (0.11-0.59); %Basophils 0.8 % (0.0-1.0); %Eosinophils 4.4 % (0.0-10.0); %Lymphocytes 25.6 % (21.0-51.0); %Monocytes 11.2 % (0.0-10.0); Mean Corpuscular HGB CONC 33.3 g/dL (32.0-36.0); Mean Corpuscular Hemoglobin 31.7 pg (27.0-31.0); Mean Platelet Volume 7.7 fL (7.4-10.4); Platelet Count 207 thou/uL (130-400); RBC Distribution Width 12.3 % (11.5-14.5); Red Blood Cell (RBC) Count 3.47 mill/uL (4.20-5.40); White Blood Cell (WBC) Count 5.1 thou/uL (4.8-10.8)
[2018-12-27 06:34] LABS: Anion Gap 12 mmol/L (10-20); BUN (Urea Nitrogen) 16 mg/dL (9.8-20.1); Calc. Creatinine Clearance 67 mL/min (70-130); Calcium 8.5 mg/dL (7.8-10.44); Carbon Dioxide 22 mmol/L (23-31); Chloride 101 mmol/L (98-107); Estimated GFR-MDRD 64; Glucose 100 mg/dL (83-110); Potassium 4.1 mmol/L (3.5-5.1); Sodium 131 mmol/L (136-145)
[2018-12-27] MEDS: Amlodipine 10 MG TAB PO SCH (07:43)
[2018-12-27] MEDS: Lisinopril 10 MG TAB PO SCH (07:44)
[2018-12-27] MEDS: Famotidine 20 MG TAB PO SCH (07:44)
[2018-12-27] MEDS: Enoxaparin Sodium 40 MG/0.4 ML SYRINGE SC SCH (07:44)
[2018-12-27] MEDS: Sodium Chloride 1 GM TAB PO SCH ×2 (08:22→14:43)
[2018-12-27] MEDS ORDERED: cloNIDine 0.1 MG TAB PO SCH (09:00)
--- NOTE | 2018-12-27 10:15 | PRG ---
DATE OF SERVICE: 12/27/2018 SUBJECTIVE: Ms. Durbin is an 78-year-old white female, who was seen by the Renal Service for her hyponatremia. This patient may have history of SIADH. She was started on sodium chloride tablet as well as free water restriction. This morning, she voices no new complaints. She denies any chest pain or shortness of breath. OBJECTIVE: VITAL SIGNS: Blood pressure is 192/77, heart rate 79, respiratory rate 16, temperature 98.5, and pulse ox 97%. GENERAL: Noted to be awake, alert, and comfortable, not in overt distress. SKIN: Adequate turgor. HEENT: She has a pinkish conjunctivae. Anicteric sclerae. NECK: No neck mass. No carotid bruits. No JVD. CHEST: No deformities. LUNGS: Clear breath sounds. HEART: Normal sinus rhythm. No murmur. No gallops. No rubs. ABDOMEN: Globular, soft, and nontender. No masses. EXTREMITIES: No edema. No deformities. MEDICATIONS: Medications of December 27, 2018, reviewed. LABORATORY DATA: Laboratories of December 27, 2018; white count 5.1, hemoglobin 11, hematocrit 33. Sodium 131, potassium 4.1, chloride 101, carbon dioxide 22, BUN 16, creatinine 0.85, glucose 100, and calcium 8.5. ASSESSMENT AND PLAN: 1. Hyponatremia - secondary to presumed syndrome of inappropriate antidiuretic hormone secretion. Continue free water restriction. Continue sodium chloride tablet. No indication for any hypertonic saline. 2. Hypertension, consider adding clonidine 0.1 mg tablet b.i.d. Overall prognosis remains fair. Agree with current management. Recheck basic metabolic in a.m. if the patient is still here. Job ID: [id number]
[2018-12-27 11:49] VITALS: BP 112/58; TEMP 98.2
--- NOTE | 2018-12-28 05:59 | DIS ---
DATE OF ADMISSION: 12/22/2018 DATE OF DISCHARGE: 12/27/2018 REASON FOR HOSPITALIZATION: Altered mental status. SIGNIFICANT FINDINGS: The patient found to have hyponatremia and acute urinary tract infection causing altered mental status. The patient's mentation did improve as sodium was slowly corrected. The patient also with malignant hypertension on admission. PROCEDURE PERFORMED AND TREATMENTS RENDERED: The patient was admitted to medical unit with telemetry for close observation and treatment. The patient was seen by Nephrology, please see full consultation and progress notes for details. Daily adjustments of medications were performed to correct the patient's sodium and eventually she was placed on sodium chloride tablets 1 g p.o. t.i.d. by Nephrology. The patient's blood pressure regimen was adjusted daily with good resolution of malignant hypertension. The patient recommended safe for discharge by Nephrology to rehabilitation facility. CONDITION ON DISCHARGE: Stable. SPECIFIC INSTRUCTIONS FOR THE PATIENT/FAMILY: 1. The patient is recommended to complete a full course of inpatient rehabilitation as directed by admitting physician. 2. The patient is recommended to take all medications as directed, to be re-evaluated by admitting physician. 3. The patient is recommended to have serial lab draws to monitor sodium over time and ensure correction of sodium. 4. The patient is recommended to adhere to fluid restrictions. 5. The patient is recommended to follow up with all specialists as directed. 6. The patient is recommended to follow up with primary care physician in 5 to 7 days after discharge to rehabilitation facility. 7. The patient is recommended to return to acute care hospital immediately if signs or symptoms return, worsen, or any other new symptoms occur. DISCHARGE MEDICATIONS: Please see full list for details. The patient's medications were changed as follows: 1. Lisinopril 10 mg one tablet p.o. b.i.d. 2. Amlodipine 10 mg one tablet p.o. daily. 3. Cefpodoxime 200 mg one tablet p.o. q.12 hours for an additional three days, six tabs. 4. The patient was stopped on SSRI medication and recommended to start low-dose mirtazapine in the next 5 to 7 days for depression. 5. All other home medications continued without changes. HOSPITAL COURSE: Ms. Durbin is a very pleasant 78-year-old white female with past medical history of hypertension, hyponatremia, hypothyroidism, depression, and osteoarthritis, who presents to [facility] on 12/22/2018 with altered mental status. The patient was found to have hyponatremia, this has caused altered mental status for her in the past. Nephrology consultation requested, please see full consultation and progress notes for details. The patient with daily adjustments in medications to control sodium levels including fluid restrictions, IV hypertonic saline, and finally salt tablets. With all of these efforts, the patient's sodium did eventually improve to the level of 131 on the day of discharge on 12/27/2018. As the patient's sodium wax and wane, her mental status also waxed and waned. The patient was found to have urinary tract infection and was placed on IV antibiotics, urine culture with mixed ellyn that did not grow any specific organisms and sensitivities could not be definitively identified. The patient with normal WBC count throughout her hospitalization. The patient afebrile throughout her hospitalization. The patient recommended to complete a full course of oral cefpodoxime for resolution of urinary tract infection. The patient with malignant hypertension and blood pressure medications were adjusted to help control her blood pressure. The patient recommended safe for discharge by Nephrology on 12/27/2018 with close followup in the rehabilitation facility. The patient recommended to have serial sodium levels over the following days to ensure that sodium continues to improve. The patient recommended in the next 5 to 7 days to restart antidepressant medications such as mirtazapine at a low dose as recommended by rattling machine tender. The patient does have uncontrolled depression and has low drive secondary to severe stressors. The patient has even been so severe per her daughter as that she does not want to get out of bed, does not care to take her medicines, does not care to get well. The patient will benefit from outpatient talk therapy with psychologist in addition to medication therapy to control her depression in the future. The patient is recommended to take all medications as directed, to be re-evaluated by admitting physician at rehabilitation facility. The patient is recommended to follow up with primary care physician, Nephrology, and psychiatrist in the outpatient setting in the next 1 to 2 weeks. The patient is recommended to return to acute care hospital immediately if signs or symptoms return, worsen, or any other new symptoms occur. Greater than 35 minutes spent coordinating care and discharge process for this patient. Job ID: [id number]
== END 2018-12-27 16:07 | DRG 644 ==
LOC: SCSER 13:38 → 2NO 15:25
PROVIDERS: ADMIT Internal Medicine; ATTEND Internal Medicine
DX: E22.2 Syndrome of inappropriate secretion of antidiuretic hormone (principal); S42.301A Unspecified fracture of shaft of humerus, right arm, initial encounter for closed fracture; N39.0 Urinary tract infection, site not specified; F32.9 Major depressive disorder, single episode, unspecified; E03.9 Hypothyroidism, unspecified; M19.90 Unspecified osteoarthritis, unspecified site; I10 Essential (primary) hypertension; W19.XXXA Unspecified fall, initial encounter; Z96.653 Presence of artificial knee joint, bilateral; Z90.710 Acquired absence of both cervix and uterus; Z88.2 Allergy status to sulfonamides; Y92.9 Unspecified place or not applicable
CPT/HCPCS: 36415; 51701; 70450; 71045; 80048; 80053; 81003; 81015; 82533; 82550; 82553; 82570; 83605; 83930; 83935; 84300; 84443; 84484; 84550; 85025; 87040; 87077; 87086; 87149; 93005; 96360; 96361; A4353; J0360; J0696; J1650; J3490

== ENCOUNTER 2019-02-27 12:44 | Outpatient (CLI) | payer MEDICARE, BC | END 2019-02-27 12:45 | disposition home or self-care (01) | LOC: CP 12:44 | PROVIDERS: ATTEND Internal Medicine | DX: R06.02 Shortness of breath (principal) | CPT/HCPCS: 94010; 94727 ==

== ENCOUNTER 2021-11-05 08:58 | Inpatient (IN) | payer MEDICARE, BC ==
[2021-11-05 09:49] LABS: Hemoglobin 11.9 g/dL (12.0-16.0); Mean Corpuscular HGB CONC 31.3 g/dL (32.0-36.0); Mean Corpuscular Hemoglobin 29.7 pg (27.0-31.0); Mean Corpuscular Volume 94.8 fL (78.0-98.0); Platelet Count 154 thou/uL (130-400); RBC Distribution Width 16.5 % (11.5-14.5); Red Blood Cell (RBC) Count 4.01 mill/uL (4.20-5.40); White Blood Cell (WBC) Count 16.2 thou/uL (4.8-10.8)
[2021-11-05 09:58] LABS: Actual Bicarbonate (HCO3a) 11.6 mEq/L (22-28); Analyzer IN Cardio ER; Base Excess (BEa) -7.2 mEq/L (-2.0 to +3.0); O2 Tension (PaO2), arterial 151.4 mmHg (> 60.0); pH, Arterial 7.54 (7.35-7.45)
[2021-11-05] MEDS ORDERED: cefTRIAXone\\ROCEPHIN 2 GM VIAL ONE (10:03)
[2021-11-05] MEDS ORDERED: Rocuronium Bromide 10 MG/ML (10ML VIAL) ONE (10:05)
[2021-11-05 10:14] LABS: ALT (SGPT) 77 U/L (8-55); AST (SGOT) 78 U/L (5-34); Albumin 3.5 g/dL (3.4-4.8); Alkaline Phosphatase 61 U/L (40-110); Anion Gap 23 mmol/L (10-20); BUN (Urea Nitrogen) 61 mg/dL (9.8-20.1); Bilirubin, Total 1.2 mg/dL (0.2-1.2); Calc. Creatinine Clearance 0 mL/min (70-130); Calcium 8.4 mg/dL (7.8-10.44); Carbon Dioxide 14 mmol/L (23-31); Chloride 109 mmol/L (98-107); Estimated GFR 20; Globulin 2.5 g/dL (2.4-3.5); Glucose 130 mg/dL (83-110); Potassium 5.2 mmol/L (3.5-5.1); Sodium 141 mmol/L (136-145)
[2021-11-05] MEDS ORDERED: Azithromycin 500 MG VIAL ONE (10:16)
[2021-11-05 10:23] LABS: ALV-art Gradient 544.225 mmHg (0-20); CO2 Tension 13.9 mmHg (35.0-45.0); Puncture Site RRA
[2021-11-05 10:26] LABS: #Lymphocytes 2.9 thou/uL (1.20-3.40); #Monocytes 1.3 thou/uL (0.11-0.59); #Neutrophils 11.9 thou/uL (1.40-6.50); %Basophils 0.3 % (0.0-1.0); %Eosinophils 0.1 % (0.0-10.0); %Neutrophils 73.6 % (42.0-75.0); Band 1 % (5-11); Lymphocytes 17 % (21-51); MDiff Complete? YES; Monocytes 5 % (0-10); Neutrophil 77 % (42-75); Platelet Morphology Comment Appears Adequate; RBC Morphology Normal
[2021-11-05 10:57] LABS: CKMB 5.9 ng/mL (0-6.6)
[2021-11-05] MEDS ORDERED: Heparin 25,000 units/D5W 500 ML ONE (11:26)
[2021-11-05] MEDS ORDERED: Acetaminophen 325 MG TAB PO PRN (11:26)
[2021-11-05] MEDS ORDERED: Bisacodyl 10 MG SUPP PR PRN (11:26)
[2021-11-05] MEDS ORDERED: HYDROcodone/Acetaminophen 10/325 mg Tablet PO PRN (11:26)
[2021-11-05] MEDS ORDERED: Ondansetron PF 4 MG/2 ML Vial IVP PRN (11:26)
[2021-11-05] MEDS ORDERED: Guaifenesin DM 100-10/5 ML UDCUP PO PRN (11:26)
[2021-11-05] MEDS ORDERED: Heparin 10,000 UNITS/ 10 ML VIAL ONE (11:26)
[2021-11-05] MEDS ORDERED: Fentanyl 100 MCG/2 ML VIAL ONE (11:49)
[2021-11-05] MEDS ORDERED: Fentanyl 20 mcg/ml (100 ml CADD) IV PRN (11:56)
[2021-11-05] MEDS ORDERED: DOPamine 400 MG/D5W 250 ML 250 ML ONE (11:57)
[2021-11-05 12:03] LABS: SARS-CoV-2 NAA Rapid Test Not Detected (NotDetected)
[2021-11-05] MEDS ORDERED: Norepinephrine 4 MG/4 ML VIAL ONE (12:21)
[2021-11-05] MEDS ORDERED: NOREPINEPHRINE 8 MG/250 ML-D5W 250 ML ONE (12:23)
[2021-11-05 12:59] LABS: Lactic Acid 10.3 mmol/L (0.5-2.2)
[2021-11-05 13:04] LABS: Actual Bicarbonate (HCO3a) 9.3 mEq/L (22-28); Analyzer IN Cardio ER; Base Excess (BEa) -18.5 mEq/L (-2.0 to +3.0); CO2 Tension 28.4 mmHg (35.0-45.0); O2 Tension (PaO2), arterial 81.4 mmHg (> 60.0); pH, Arterial 7.13 (7.35-7.45)
[2021-11-05 13:05] LABS: Puncture Site RRA
[2021-11-05 13:12] LABS: Bacteria/HPF 4+ HPF (None Seen); Bilirubin 1+ (Negative); Blood, Urine 1+ (Negative); Clarity Turbid (Clear); Glucose, Urine (Dipstick) Normal (Negative); Ketone, Urine Trace mg/dL (Negative); Leukocyte 500 Leu/uL (Negative); Nitrite Negative (Negative); Protein, Urine (Dipstick) 70 mg/dL (Neg-Trace); Specific Gravity, Urine 1.025 (1.002-1.036); Squamous Epithelial 0-3 HPF (0-3); Urobilinogen 3 mg/dL (Less than 2); WBC/HPF 21-50 HPF (0-3)
[2021-11-05] MEDS ORDERED: Sodium Bicarbonate 150 MEQ in Dextrose 5% in Water 1,000 ML IV SCH (13:45)
[2021-11-05 13:50] LABS: Critical Call Chem Troponin I RESULT DECREASING
[2021-11-05 13:59] LABS: BUN (Urea Nitrogen) 58 mg/dL (9.8-20.1); Calc. Creatinine Clearance 0 mL/min (70-130); Calcium 8.3 mg/dL (7.8-10.44); Chloride 110 mmol/L (98-107); Estimated GFR 20; Glucose 125 mg/dL (83-110); Potassium 5.2 mmol/L (3.5-5.1); Sodium 140 mmol/L (136-145)
[2021-11-05 14:03] LABS: Carbon Dioxide Less than 8 mmol/L (23-31)
[2021-11-05] MEDS ORDERED: NOREPINEPHRINE 8 MG/250 ML-D5W 250 ML IVPB SCH (14:15)
[2021-11-05] MEDS ORDERED: Sodium Bicarb 50 MEQ/50 ML VIAL IVP SCH (14:30)
[2021-11-05 15:30] LABS: Creatinine, Urine 197.59 mg/dL (47-110); Protein, Urine Random Quant 79 mg/dL (1-14); Sodium, Urine Less than 20 mmol/L (Not Available); Urea Nitrogen, Random Urine 369 mg/dl
[2021-11-05] MEDS ORDERED: VANCOMYCIN 1.25 GM/250 ML BAG 1.25 GM in Premix Bag 1 BAG IVPB SCH (16:00)
[2021-11-05 16:36] LABS: Actual Bicarbonate (HCO3a) 8.7 mEq/L (22-28); Base Excess (BEa) -15.9 mEq/L (-2.0 to +3.0); Calcium, Ionized (arterial) 1.12 mmol/L (1.12-1.30); Carboxyhemoglobin (COHb) 0.7 gm% (0.0-3.0); Hemoglobin (Hb) 13.6 g/dL (12.0-16.0); O2 Tension (PaO2), arterial 154.9 mmHg (> 60.0); Potassium - ABG Lab 4.91 mmol/L (3.70-5.30); pH, Arterial 7.27 (7.35-7.45)
[2021-11-05 16:38] VITALS: BMI 28.6
[2021-11-05 16:38] LABS: CO2 Tension 19.5 mmHg (35.0-45.0)
[2021-11-05 16:39] LABS: ALV-art Gradient 177.225 mmHg (0-20); Puncture Site LRA
[2021-11-05 16:41] LABS: Troponin I 10.251 ng/mL (< 0.028)
[2021-11-05] MEDS: Amiodarone 450 MG in Dextrose 5% in Water 250 ML IVPB SCH ×2 (16:51→22:35)
[2021-11-05] MEDS: Sodium Bicarbonate 150 MEQ in Dextrose 5% in Water 1,000 ML IV SCH (16:52)
[2021-11-05] MEDS ORDERED: Furosemide 40 MG/4 ML VIAL SLOW IVP SCH (17:00)
[2021-11-05] MEDS ORDERED: Cefepime 1 GM in Sodium Chloride 0.9% 100 ML IVPB SCH (18:00)
[2021-11-05] MEDS ORDERED: Heparin 10,000 UNITS/ 10 ML VIAL SLOW IVP SCH (18:45)
[2021-11-05] MEDS ORDERED: Heparin 25,000 units/D5W 500 ML IVPB SCH (18:45)
[2021-11-05 19:07] LABS: PTT 127.6 sec (22.9-36.1)
[2021-11-05 20:07] LABS: Anion Gap 22 mmol/L (10-20); BUN (Urea Nitrogen) 66 mg/dL (9.8-20.1); Calc. Creatinine Clearance 22 mL/min (70-130); Calcium 7.9 mg/dL (7.8-10.44); Carbon Dioxide 14 mmol/L (23-31); Chloride 108 mmol/L (98-107); Estimated GFR 18; Glucose 197 mg/dL (83-110); Potassium 4.5 mmol/L (3.5-5.1); Sodium 139 mmol/L (136-145)
[2021-11-05 20:56] LABS: Legionella Urinary Ag Negative (Negative); Strep pneumo Urine Ag NEGATIVE (NEGATIVE)
[2021-11-05] MEDS ORDERED: VANCOMYCIN 1.25 GM/250 ML BAG IVPB SCH (21:00)
[2021-11-05] MEDS: Famotidine/PF 20 mg/2ml Vial SLOW IVP SCH (21:30)
[2021-11-06 05:10] LABS: ALT (SGPT) 931 U/L (8-55); AST (SGOT) 1818 U/L (5-34); Albumin 2.8 g/dL (3.4-4.8); Alkaline Phosphatase 67 U/L (40-110); Anion Gap 20 mmol/L (10-20); BUN (Urea Nitrogen) 64 mg/dL (9.8-20.1); Bilirubin, Direct 0.5 mg/dL (0.1-0.3); Bilirubin, Total 0.9 mg/dL (0.2-1.2); Calc. Creatinine Clearance 21 mL/min (70-130); Calcium 7.8 mg/dL (7.8-10.44); Carbon Dioxide 19 mmol/L (23-31); Chloride 104 mmol/L (98-107); Estimated GFR 17; Glucose 154 mg/dL (83-110); Magnesium 2.1 mg/dL (1.6-2.6); Potassium 4.1 mmol/L (3.5-5.1); Protein, Total 5.2 g/dL (5.8-8.1); Sodium 139 mmol/L (136-145)
[2021-11-06] MEDS: Sodium Bicarbonate 150 MEQ in Dextrose 5% in Water 1,000 ML IV SCH (06:00)
[2021-11-06 06:05] LABS: #Lymphocytes 2.6 thou/uL (1.20-3.40); #Monocytes 0.5 thou/uL (0.11-0.59); #Neutrophils 13.3 thou/uL (1.40-6.50); %Basophils 0.1 % (0.0-1.0); %Eosinophils 0.2 % (0.0-10.0); %Lymphocytes 15.8 % (21.0-51.0); %Monocytes 3.2 % (0.0-10.0); %Neutrophils 80.7 % (42.0-75.0); Hemoglobin 12.1 g/dL (12.0-16.0); Mean Corpuscular HGB CONC 32.6 g/dL (32.0-36.0); Mean Corpuscular Hemoglobin 30.6 pg (27.0-31.0); Mean Corpuscular Volume 93.7 fL (78.0-98.0); Mean Platelet Volume 10.3 fL (7.4-10.4); Platelet Count 137 thou/uL (130-400); RBC Distribution Width 16.4 % (11.5-14.5); Red Blood Cell (RBC) Count 3.95 mill/uL (4.20-5.40); White Blood Cell (WBC) Count 16.4 thou/uL (4.8-10.8)
[2021-11-06 07:56] LABS: Actual Bicarbonate (HCO3a) 16.2 mEq/L (22-28); Calcium, Ionized (arterial) 0.98 mmol/L (1.12-1.30); Carboxyhemoglobin (COHb) 0.5 gm% (0.0-3.0); Hemoglobin (Hb) 13.1 g/dL (12.0-16.0); O2 Tension (PaO2), arterial 185.3 mmHg (> 60.0); Potassium - ABG Lab 4.02 mmol/L (3.70-5.30)
[2021-11-06 08:10] VITALS: BP 117/74
[2021-11-06 08:10] LABS: ALV-art Gradient 149.325 mmHg (0-20); CO2 Tension 17.5 mmHg (35.0-45.0); Puncture Site RRA; pH, Arterial 7.59 (7.35-7.45)
[2021-11-06] MEDS: Famotidine/PF 20 mg/2ml Vial SLOW IVP SCH (08:56)
[2021-11-06] MEDS ORDERED: Midazolam HCl 2 mg/2 ml Vial SLOW IVP PRN (10:13)
[2021-11-06] MEDS ORDERED: Morphine 4 MG/ML VIAL SLOW IVP PRN (10:13)
[2021-11-06] MEDS ORDERED: Morphine 4 MG/ML VIAL ONE (10:16)
[2021-11-06] MEDS ORDERED: Midazolam HCl 2 mg/2 ml Vial ONE (10:16)
[2021-11-06 13:10] VITALS: TEMP 98.4
[2021-11-06] MEDS ORDERED: ADMIXTURE FEE IVPB SCH (15:45)
[2021-11-06] MEDS ORDERED: VANCOMYCIN IVPB SCH (15:45)
== END 2021-11-06 12:15 | disposition expired | DRG 871 ==
LOC: ERS 08:58 → CCU 11:09
PROVIDERS: ADMIT Hospitalist; ATTEND Hospitalist
PROC: 3E04329 Introduction of Other Anti-infective into Central Vein, Percutaneous Approach (ICD-10-PCS; principal; 2021-11-05)
PROC: 02HV33Z Insertion of Infusion Device into Superior Vena Cava, Percutaneous Approach (ICD-10-PCS; 2021-11-05)
PROC: 5A1935Z Respiratory Ventilation, Less than 24 Consecutive Hours (ICD-10-PCS; 2021-11-05)
PROC: 3E043XZ Introduction of Vasopressor into Central Vein, Percutaneous Approach (ICD-10-PCS; 2021-11-05)
PROC: 5A09357 Assistance with Respiratory Ventilation, Less than 24 Consecutive Hours, Continuous Positive Airway Pressure (ICD-10-PCS; 2021-11-05)
PROC: 0BH17EZ Insertion of Endotracheal Airway into Trachea, Via Natural or Artificial Opening (ICD-10-PCS; 2021-11-05)
PROC: 5A12012 Performance of Cardiac Output, Single, Manual (ICD-10-PCS; 2021-11-05)
DX: A41.9 Sepsis, unspecified organism (principal); Z66 Do not resuscitate; Z20.822 Contact with and (suspected) exposure to COVID-19; Z51.5 Encounter for palliative care; R65.21 Severe sepsis with septic shock; J96.01 Acute respiratory failure with hypoxia; I50.33 Acute on chronic diastolic (congestive) heart failure; I21.A1 Myocardial infarction type 2; E87.1 Hypo-osmolality and hyponatremia; N17.9 Acute kidney failure, unspecified; I13.0 Hypertensive heart and chronic kidney disease with heart failure and stage 1 through stage 4 chronic kidney disease, or unspecified chronic kidney disease; E89.0 Postprocedural hypothyroidism; K21.9 Gastro-esophageal reflux disease without esophagitis; N18.30 Chronic kidney disease, stage 3 unspecified; R29.6 Repeated falls; I48.91 Unspecified atrial fibrillation; E87.5 Hyperkalemia; I73.9 Peripheral vascular disease, unspecified; Z96.641 Presence of right artificial hip joint; E86.9 Volume depletion, unspecified; R57.0 Cardiogenic shock; I46.8 Cardiac arrest due to other underlying condition; T46.4X5A Adverse effect of angiotensin-converting-enzyme inhibitors, initial encounter; R74.8 Abnormal levels of other serum enzymes; Z98.890 Other specified postprocedural states; Z90.710 Acquired absence of both cervix and uterus; Z91.81 History of falling; Z88.2 Allergy status to sulfonamides; Z79.899 Other long term (current) drug therapy; Z79.890 Hormone replacement therapy; Z90.49 Acquired absence of other specified parts of digestive tract
CPT/HCPCS: 36415; 36600; 71045; 80048; 80053; 81003; 81015; 82550; 82553; 82570; 82805; 83605; 83735; 83880; 84145; 84156; 84300; 84484; 84540; 85025; 85730; 87040; 87086; 87449; 87804; 87899; 93005; 94002; 94003; 94660; 94760; J0282; J0456; J0692; J0696; J1265; J1644; J1940; J2250; J2270; J3010; J3370; J3490; J7070; S0028